=== PATIENT | female | born 1985 | race Caucasian/White ===

== ENCOUNTER → 2025-01-03 | Day surgery (SDC) | payer OTHER ==
[~2025-01-03] MED LIST: Propofol 200 MG/20 ML SDV IV ONE; Sodium Chloride 0.9% 10 ML Syringe FLUSH PRN
[2025-01-03] MEDS: Lactated Ringers 1,000 ML IV SCH (09:15)
== END | disposition home or self-care (01) ==
LOC: FB.SDS 08:04
PROVIDERS: ATTEND Surgery
DX: K29.50 Unspecified chronic gastritis without bleeding (principal); K20.0 Eosinophilic esophagitis; K21.9 Gastro-esophageal reflux disease without esophagitis; K25.9 Gastric ulcer, unspecified as acute or chronic, without hemorrhage or perforation; Z88.2 Allergy status to sulfonamides; Z79.899 Other long term (current) drug therapy
CPT/HCPCS: 00731; 88305; 88342; A9270-GY; J2003; J2704; J7120